=== PATIENT | male | born 1985 | race Caucasian/White ===

== ENCOUNTER 2017-09-02 11:59 | Emergency (ER) | payer OTHER ==
[2017-09-02] MEDS: HYDROCODONE/APAP (5/325) TAB PO (14:55)
[2017-09-02] MEDS: DIPHTH/TET/ACEL PERTUSS (ADULT) 0.5 ML VIAL IM* (14:56)
[2017-09-02] MEDS: LIDOCAINE 1% (MDV) 20 ML INJ SC (15:04)
== END 2017-09-02 16:23 | disposition home or self-care (01) ==
LOC: FTE 11:59
DX: S61.412A Laceration without foreign body of left hand, initial encounter (principal); F17.210 Nicotine dependence, cigarettes, uncomplicated; W18.39XA Other fall on same level, initial encounter; Y92.9 Unspecified place or not applicable; Z23 Encounter for immunization
CPT/HCPCS: 12002; 73130-LT; 90471; 90715; 99284-25